=== PATIENT | male | born 1965 | race Caucasian/White ===

== ENCOUNTER 2024-01-11 20:27 | Emergency (ER) | payer OTHER ==
[~2024-01-11] VITALS: Ht 175.3 cm; Wt 83.9 kg
[2024-01-11 20:40] VITALS: BP_SYST 154; PULSE 96; RESP 20; TEMP 97.3; O2SAT 100
[2024-01-11] MEDS ORDERED: LORazepam 2 MG/ML VIAL ONE (21:04)
[2024-01-11] MEDS: LORazepam 2 MG/ML VIAL IVP ONE (21:10)
[2024-01-11] MEDS: levETIRAcetam 1,000 MG IV BAG 100 ML IV ONE (21:33)
[2024-01-11 21:35] LABS: LYMPHOCYTES # (AUTO) 0.4 K/uL (1.0-5.5); MONOCYTES # (AUTO) 0.6 K/uL (0.0-1.0)
[2024-01-11] MEDS: NACL 0.9% 1,000 ML IV ONE (21:35)
[2024-01-11 21:48] LABS: BASOPHILS % (AUTO) 0.4 % (0.0-2.0); EOSINOPHILS % (AUTO) 0.1 % (0.0-4.0); HEMATOCRIT 38.9 % (36-54); HEMOGLOBIN 13.6 g/dL (14.0-18.0); LYMPHOCYTES % (AUTO) 5.1 % (20.5-51.5); MEAN CORPUSCULAR HEMOGLOBIN 36 pg (27-31); MEAN CORPUSCULAR HGB CONC 35 % (32-36); MEAN CORPUSCULAR VOLUME 104 fL (79.0-98.0); MONOCYTES % (AUTO) 7.5 % (1.7-9.3); NEUTROPHILS # (AUTO) 6.9 K/uL (1.8-7.7); NEUTROPHILS % (AUTO) 86.9 % (40.0-70.0); PLATELET COUNT (AUTO) 75 K/uL (130-430); RED BLOOD CELL COUNT(AUTO) 3.73 MIL/uL (4.2-6.2); RED CELL DISTRIBUTION WIDTH 13.1 % (9.0-15.0); WHITE BLOOD COUNT (AUTO) 7.9 K/uL (4.8-10.8)
[2024-01-11 22:02] LABS: ALBUMIN 4.4 g/dL (3.4-4.8); BILIRUBIN,DIRECT 0.3 mg/dL (0.0-0.3); CALCIUM 9.8 mg/dL (8.4-11.0); CREATININE 1.06 mg/dL (0.55-1.30); POTASSIUM 3.2 mmol/L (3.5-5.1); TOTAL BILIRUBIN 1.1 mg/dL (0.0-1.0); TOTAL PROTEIN, SERUM 8.9 g/dL (6.4-8.3)
[2024-01-12] MEDS: ONDANSETRON HCL 4 MG/2 ML VIAL IVP ONE (01:03)
[2024-01-12] MEDS: POTASSIUM CHLORIDE 20 MEQ/PKT PACKET PO ONE (02:04)
[2024-01-12 02:35] LABS: CALCIUM 9.5 mg/dL (8.4-11.0); CREATININE 0.77 mg/dL (0.55-1.30); POTASSIUM 4.2 mmol/L (3.5-5.1)
[2024-01-12 05:12] VITALS: BP_SYST 129; PULSE 98; RESP 21; TEMP 98.4; O2SAT 98
== END 2024-01-12 06:10 | disposition admitted as inpatient to this hospital (09) ==
LOC: SED 20:27
DX: R41.82 Altered mental status, unspecified (principal); R61 Generalized hyperhidrosis; R11.10 Vomiting, unspecified; I10 Essential (primary) hypertension; F41.9 Anxiety disorder, unspecified; Z20.822 Contact with and (suspected) exposure to COVID-19
CPT/HCPCS: 99285; 96365; 70450; 96366; 96375 ×2; 87426; 80076; 80048; 85025; 36415; 82948; 93005; G0482; J1953; J2060; J2405